=== PATIENT | female | born 1990 | race Caucasian/White ===

== ENCOUNTER → 2023-02-01 17:32 | Outpatient (CLI) | payer MEDICAID, SELFPAY ==
[2023-02-01 16:55] LABS: Basophils % 0.5 % (0.1-2.0); Eosinophils # 0.3 K/mm3 (0.0-0.4); Eosinophils % 4.7 % (0.1-12.0); Hematocrit 41.9 % (37.0-47.0); Hemoglobin 13.5 g/dL (12.2-16.2); Lymphocytes # 2.2 K/mm3 (0.7-4.5); Lymphocytes % 37.8 % (10-50); Mean Corpuscular HGB Conc 32.3 g/dL (31.8-35.4); Mean Corpuscular Hemoglobin 28.3 pg (27.0-31.2); Mean Corpuscular Volume 87.5 fl (81-99); Mean Platelet Volume 7.1 fl (7.4-10.4); Monocytes # 0.4 K/mm3 (0.1-1.0); Monocytes % 6.9 % (1.7-9.3); Neutrophils # 2.9 K/mm3 (1.8-7.8); Neutrophils % 50.1 % (37.0-80.0); Platelet Count 259 K/mm3 (142-424); Red Blood Count 4.79 M/mm3 (4.20-5.40); Red Cell Distribution Width 13.2 % (11.5-17.5); White Blood Count 5.9 K/mm3 (4.8-10.8)
[2023-02-01 17:11] LABS: Chloride 98 mmol/L (98-107); Potassium 4.2 mmoL/L (3.5-5.1); Sodium 137 mmol/L (136-145)
[2023-02-01 17:14] LABS: Alanine Aminotransferase 39 U/L (12-78); Albumin Level 4.3 g/dl (3.5-5.0); Albumin/Globulin Ratio 1.4 (1.1-1.8); Alkaline Phosphatase 69 U/L (38-126); Anion Gap 15.2 mEq/L (5-15); Aspartate Amino Transferase 37 U/L (14-36); Bilirubin,Total 0.6 mg/dl (0.2-1.3); Blood Urea Nitrogen 8 mg/dl (7-17); Calcium 9.1 mg/dl (8.4-10.2); Carbon Dioxide 28 mmol/L (22.0-30.0); Estimated Glomerular Filt Rate 97 ml/min (>60); GFR (African American) 117 ML/MIN (>60); Globulin 3.1 g/dL (1.3-3.2); Glucose 113 mg/dl (74-100); Total Protein,Serum 7.4 g/dl (6.3-8.2)
[2023-02-01 17:41] LABS: Thyroid Stimulating Hormone 2.86 uIU/mL (0.465-4.68)
[2023-02-03 12:37] LABS: FSH 6.4 mIU/mL (.); LH 19.7 mIU/mL (.)
[2023-02-12 17:55] LABS: 1,25 Dihydroxy Vitamin D 54 pg/mL (.); 1,25-Dihydroxy, Vitamin D-2 <10 pg/mL (.); 1,25-Dihydroxy, Vitamin D-3 50 pg/mL (.)
== END ==
PROVIDERS: PCP Nurse Practitioner Family; Visit Provider Nurse Practitioner Family
DX: R53.83 Other fatigue (principal); E66.9 Obesity, unspecified; Z68.41 Body mass index [BMI] 40.0-44.9, adult; Z79.899 Other long term (current) drug therapy
CPT/HCPCS: 80053; 82652; 82672; 83001; 83002; 83036; 84443; 85025

== ENCOUNTER → 2023-09-18 08:03 | Outpatient (CLI) | payer MEDICAID, SELFPAY | PROVIDERS: PCP Nurse Practitioner Family; Visit Provider Nurse Practitioner Family | DX: J02.9 Acute pharyngitis, unspecified (principal); Z87.891 Personal history of nicotine dependence | CPT/HCPCS: 87070 ==

== ENCOUNTER 2023-11-21 12:52 | Emergency (ER) | payer MEDICAID, SELFPAY ==
[2023-11-21 13:00] VITALS: BP 148/80; PULSE 70; RESP 16; TEMP 36.8; O2SAT 99; BMI 44.6
[2023-11-21 13:42] LABS: Basophils % 0.5 % (0.1-2.0); Eosinophils # 0.1 K/mm3 (0.0-0.4); Eosinophils % 1.6 % (0.1-12.0); Hematocrit 43.7 % (37.0-47.0); Hemoglobin 14.8 g/dL (12.2-16.2); Lymphocytes # 2.5 K/mm3 (0.7-4.5); Lymphocytes % 30.5 % (10-50); Mean Corpuscular HGB Conc 33.8 g/dL (31.8-35.4); Mean Corpuscular Hemoglobin 30.5 pg (27.0-31.2); Monocytes # 0.5 K/mm3 (0.1-1.0); Monocytes % 5.8 % (1.7-9.3); Neutrophils % 61.7 % (37.0-80.0); Platelet Count 275 K/mm3 (142-424); Red Blood Count 4.86 M/mm3 (4.20-5.40); Red Cell Distribution Width 13.5 % (11.5-17.5); White Blood Count 8.1 K/mm3 (4.8-10.8)
[2023-11-21 13:43] LABS: Chloride 97 mmol/L (98-107); Sodium 134 mmol/L (136-145)
[2023-11-21 13:44] LABS: Potassium 3.7 mmoL/L (3.5-5.1)
[2023-11-21 13:46] LABS: Alanine Aminotransferase 63 U/L (12-78); Albumin Level 4.4 g/dl (3.5-5.0); Albumin/Globulin Ratio 1.3 (1.1-1.8); Alkaline Phosphatase 70 U/L (38-126); Anion Gap 4.7 mEq/L (5-15); Aspartate Amino Transferase 61 U/L (14-36); Bilirubin,Total 0.9 mg/dl (0.2-1.3); Blood Urea Nitrogen 10 mg/dl (7-17); Carbon Dioxide 36 mmol/L (22.0-30.0); Creatinine Clearance Estimated 95 mL/min (50-200); Estimated Glomerular Filt Rate 83 ml/min (>60); GFR (African American) 101 ML/MIN (>60); Globulin 3.5 g/dL (1.3-3.2); Total Protein,Serum 7.9 g/dl (6.3-8.2)
[2023-11-21 13:47] LABS: Calcium 9.7 mg/dl (8.4-10.2); Glucose 296 mg/dl (74-100)
[2023-11-21 13:52] LABS: D-Dimer 0.41 ug/mL (0.0-0.5)
[2023-11-21 14:01] VITALS: BP 126/77; PULSE 70; RESP 20; O2SAT 100
[2023-11-21] MEDS: 0.9 % SODIUM CHLORIDE 1000ML 500 ML IV (14:08)
[2023-11-21] MEDS: diphenhydrAMINE 50MG/ML VIAL 25 MG IV (14:10)
[2023-11-21] MEDS: ACETAMINOPHEN 500MG TAB 1000 MG PO (14:10)
[2023-11-21] MEDS: PROCHLORPERAZINE 10MG/2ML VIAL 10 MG IV (14:10)
[2023-11-21] MEDS: KETOROLAC 30MG/ML VIAL 15 MG IV (14:11)
[2023-11-21] MEDS: DEXAMETHASONE 4MG/ML 1ML VIAL 10 MG IV (14:11)
--- NOTE | 2023-11-21 14:17 | PC.NURSE ---
Medications given, pillow and blanket given.
--- NOTE | 2023-11-21 14:19 | HMH.EDGENADL ---
Discharge Plan Disposition Patient Disposition: Left Against Medical Advice Chief Complaint: Headache Prescriptions Prescriptions: No Action fluticasone propionate [Flonase Allergy Relief] 50 mcg/actuation spray,suspension 1 spray intranasal DAILY Qty: 16 2RF Rx Instructions: administer into each nostril cetirizine [All Day Allergy (cetirizine)] 10 mg tablet 10 mg PO DAILY PRN (Reason: allergic symptoms) Qty: 90 2RF famotidine 20 mg tablet 20 mg PO DAILY hydrochlorothiazide 50 mg tablet 50 mg PO DAILY Qty: 30 2RF ipratropium-albuterol 0.5 mg-3 mg(2.5 mg base)/3 mL solution for nebulization 3 ml inhalation QID PRN (Reason: shortness of breath or wheezing) Qty: 90 0RF diclofenac sodium 50 mg tablet,delayed release (DR/EC) 50 mg PO BID Qty: 60 1RF metformin 500 mg tablet extended release 24 hr 500 mg PO DAILY Qty: 30 3RF Referrals Follow up/Referrals: Marshall Menodza MD [Primary Care Provider] - See instructions Clinical Impressions Clinical Impression: Headache Discharge ED Provider: Holden Kaplan General Adult HPI <Holden Kaplan MD - Last Filed: 11/21/23 15:30> General Chief complaint: Headache Stated complaint: high bp headaches Time Seen by Provider: 11/21/23 13:01 Mode of Arrival: Ambulatory Source of Information: Patient Limitations: No Limitations Description of Symptoms (Recalled from ER Triage Doc. by RN): Patient reports having problems with her blood pressure yesterday. States she began to have a headache so she went to her PCP. States her PCP prescribed her Lisinopril and since starting that medication her blood pressure has improved, however the headache has not went away. Denies any visual disturbances, light sensitivity, or history of migraines. Does states that she was nauseous this morning. History of Present Illness HPI narrative: 32-year-old female presenting with headaches and high blood pressure. Patient states that she has been following with her primary care doctor regarding her hypertension and is now on blood pressure medication. States that she feels that her blood pressure is controlled, but she is now having headaches. Intermittently gets headaches, but they are never this bad. She states that this headache started yesterday, 11/20. It woke her up from sleep. Got worse throughout the day, then a little bit better at night. She states that last night, 11/20 into 11/21 she was having intermittent stabbing headaches throughout the night. They are right-sided, behind her right eye and radiates to her occipital scalp. She states that she has had Related Data Home Medications Medication Instructions Recorded Confirmed famotidine 20 mg tablet 20 mg PO DAILY 04/11/23 11/20/23 Previous Rx's Medication Instructions Recorded cetirizine 10 mg tablet (All Day 10 mg PO DAILY PRN allergic 02/01/23 Allergy (cetirizine)) symptoms #90 tabs fluticasone propionate 50 1 spray intranasal DAILY #16 grams 02/01/23 mcg/actuation nasal spray,suspension (Flonase Allergy Relief) metformin 500 mg tablet,extended 500 mg PO DAILY #30 tabs 02/02/23 release 24 hr diclofenac sodium 50 mg 50 mg PO BID #60 tabs 05/23/23 tablet,delayed release hydrochlorothiazide 50 mg tablet 50 mg PO DAILY #30 tabs 09/18/23 ipratropium 0.5 mg-albuterol 3 mg 3 ml inhalation QID PRN shortness 09/18/23 (2.5 mg base)/3 mL nebulization of breath or wheezing #90 mL soln Allergies Allergy/AdvReac Type Severity Reaction Status Date / Time sulfamethoxazole Allergy Hives Verified 11/20/23 16:12 [From Bactrim] topiramate [From Topamax] Allergy Verified 11/21/23 13:05 trimethoprim [From Bactrim] Allergy Hives Verified 11/20/23 16:12 [facility] <Holden Kaplan MD - Last Filed: 11/21/23 15:30> [facility] Disclaimer: The information contained in this section may have been updated after the patient was seen, as this information can be updated by other users. Medical History (Updated 11/21/23 @ 15:54 by Mango Martinez MD) Colitis Hypertension Surgical History H/O adenoidectomy History of cholecystectomy History of tonsillectomy Family History Grandmother Cancer Grandfather Cancer Mother Cancer Hypertension Heart attack Father Hypertension Social History (Reviewed 09/18/23 @ 12:16 by Lindsay Mccrary Smoking Status: Current every day smoker how long ago did patient quit smoking: < 1 year alcohol intake: never substance use type: denies use current occupational status: unemployed Travel in the last 8 weeks: None household members: spouse, family and children housing: house marital status: <Holden Kaplan MD - Last Filed: 11/21/23 15:30> ROS Obtained: Yes All systems reviewed & no additional complaints except as documented Physical Exam <Holden Kaplan MD - Last Filed: 11/21/23 15:30> General General appearance: alert and in no apparent distress Head Head exam: atraumatic and normocephalic Eye Eye exam: Present normal appearance, PERRL and EOMI ENT ENT exam: Present mucous membranes moist Neck Neck exam: Present normal inspection, full ROM and trachea midline Respiratory Respiratory exam: Absent respiratory distress, wheezes, stridor, accessory muscle use or prolonged expiratory phase Cardiovascular Cardiovascular exam: Present normal rhythm Abdominal Exam Abdominal exam: Present soft; Absent distention, tenderness, guarding, rebound or rigidity Extremities Exam Extremities exam: Absent edema Neurological Exam Neurological exam: Present alert, oriented X3, CN II-XII intact and normal gait; Absent motor sensory deficit Skin Skin exam: Present warm and dry; Absent diaphoresis or erythema Medical Decision Making <Holden Kaplan MD - Last Filed: 11/21/23 15:30> Medical Records Medical records reviewed: Yes I reviewed the patient's medical records. Abhijit Inquiry Pt receiving controlled substance: No Abhijit was queried for this patient: No Vital Signs: 11/21/23 13:00 11/21/23 14:01 11/21/23 14:31 Temperature 98.3 F Temperature Source Oral Pulse Rate 70 52 L Pulse Rate [Radial] 70 Respiratory Rate 16 20 18 Blood Pressure 126/77 131/69 Blood Pressure [Right Arm] 148/80 H Blood Pressure Mean 87 85 Blood Pressure Mean [Right Arm] 102 Blood Pressure Source [Right Arm] Automatic Cuff Blood Pressure Position [Right Arm] Sitting 02 Sat by Pulse Oximetry 99 100 96 Oxygen Delivery Method Room Air 11/21/23 15:01 11/21/23 15:31 Temperature Temperature Source Pulse Rate 64 60 Pulse Rate [Radial] Respiratory Rate 20 20 Blood Pressure 113/73 107/63 L Blood Pressure [Right Arm] Blood Pressure Mean 86 76 Blood Pressure Mean [Right Arm] Blood Pressure Source [Right Arm] Blood Pressure Position [Right Arm] 02 Sat by Pulse Oximetry 99 100 Oxygen Delivery Method Lab Data Lab Results 11/21/23 13:06: WBC 8.1, RBC 4.86, Hgb 14.8, Hct 43.7, MCV 90.0, MCH 30.5, MCHC 33.8, RDW 13.5, Plt Count 275, MPV 8.0, Neut % (Auto) 61.7, Lymph % (Auto) 30.5, [place] % (Auto) 5.8, Eos % (Auto) 1.6, Baso % (Auto) 0.5, Neut # (Auto) 5.0, Lymph # (Auto) 2.5, [place] # (Auto) 0.5, Eos # (Auto) 0.1, Baso # (Auto) 0.0, ESR 15, PT 10.1, INR 0.93, APTT 26.1, D-Dimer 0.41, Sodium 134 L, Potassium 3.7, Chloride 97 L, Carbon Dioxide 36 H, Anion Gap 4.7 L, BUN 10, Creatinine 0.80, Estimated Creat Clear 95, Estimated GFR 83, Est GFR ( Amer) 101, Glucose 296 H, Calcium 9.7, Total Bilirubin 0.9, AST 61 H, ALT 63, Alkaline Phosphatase 70, C-Reactive Protein 4.9 H, Total Protein 7.9, Albumin 4.4, Globulin 3.5 H, Albumin/Globulin Ratio 1.3 11/21/23 14:00: HCG, Quant < 2 11/21/23 13:06 11/21/23 13:06 Orders (Tests/Meds): ED MEDICATIONS Discontinued Medications Generic Name Dose Route Start Last Admin Trade Name Freq PRN Reason Stop Dose Admin Acetaminophen 1,000 mg 11/21/23 13:35 11/21/23 14:10 Acetaminophen 500mg Tab PO 11/21/23 13:36 1,000 mg ONCE ONE Administration Dexamethasone Sodium Phosphate 10 mg 11/21/23 13:34 11/21/23 14:11 Dexamethasone 4mg/Ml 1ml Vial IV 11/21/23 13:35 10 mg ONCE ONE Administration Diphenhydramine HCl 25 mg 11/21/23 13:35 11/21/23 14:10 Diphenhydramine 50mg/Ml Vial IV 11/21/23 13:36 25 mg ONCE ONE Administration Sodium Chloride 500 mls @ 500 mls/hr 11/21/23 13:35 11/21/23 14:08 Sod Chlor 0.9% 1000ml Bag IV 11/21/23 14:34 500 mls/hr .Q1H ONE Administration Ketorolac Tromethamine 15 mg 11/21/23 13:34 11/21/23 14:11 Ketorolac 30mg/Ml Vial IV 11/21/23 13:35 15 mg ONCE ONE Administration Prochlorperazine Edisylate 10 mg 11/21/23 13:34 11/21/23 14:10 Prochlorperazine 10mg/2ml Vial IV 11/21/23 13:35 10 mg ONCE ONE Administration ORDERS Category Date Time Status CT Venogram head Stat Cat Scan 11/21/23 14:[address] angio head Stat Cat Scan 11/21/23 15:[address] angio neck Stat Cat Scan 11/21/23 15:[address] head/brain wo con Stat Cat Scan 11/21/23 15:24 Ordered CBC w/Auto Diff [Complete Blood Count Auto Diff] Stat Lab 11/21/23 13:06 Completed CMP [Comprehensive Metabolic Panel] Stat Lab 11/21/23 13:06 Completed CRP [C-Reactive Protein] Stat Lab 11/21/23 13:06 Completed D-Dimer Stat Lab 11/21/23 13:06 Completed ESR [Erythrocyte Sedimentation Rate] Stat Lab 11/21/23 13:06 Completed HCG,Quantitative Stat Lab 11/21/23 14:00 Completed PT INR [Prothrombin Time INR] Stat Lab 11/21/23 13:06 Completed PTT [Activated Partial Thrombo Time] Stat Lab 11/21/23 13:06 Completed Medical Decision Narrative: 32-year-old female presenting with headaches and high blood pressure. Patient states that she has been following with her primary care doctor regarding her hypertension and is now on blood pressure medication. States that she feels that her blood pressure is controlled, but she is now having headaches. Intermittently gets headaches, but they are never this bad. She states that this headache started yesterday, 11/20. It woke her up from sleep. Got worse throughout the day, then a little bit better at night. She states that last night, 11/20 into 11/21 she was having intermittent stabbing headaches throughout the night. They are right-sided, behind her right eye and radiates to her occipital scalp. She states that she has had. History was obtained via conversation with patient. On arrival, patient hemodynamically stable, alert, oriented x4, appropriate, GCS 15, moving all extremities spontaneously, pupils equal and reactive to light. Full physical exam performed and significant for well-appearing woman in no acute distress. Neurologically intact. Not photophobic or phonophobic. No range of motion difficulties in the neck, meningismus, confusion. She is hemodynamically stable, afebrile, normotensive. Differential includes migraine disorder, tension headache, dural venous thrombosis, IIH, among others. Patient was given Compazine, Benadryl, Decadron, Toradol, acetaminophen, fluid bolus for symptomatic management and correction of underlying abnormalities. Workup independently interpreted and significant for nonactionable CBC or chemistry. D-dimer normal. Coags normal. hCG negative. Prior to CT evaluation, care handed off to oncoming physician. <Mango Martinez MD - Last Filed: 11/21/23 15:54> Vital Signs: 11/21/23 13:00 11/21/23 14:01 11/21/23 14:31 Temperature 98.3 F Temperature Source Oral Pulse Rate 70 52 L Pulse Rate [Radial] 70 Respiratory Rate 16 20 18 Blood Pressure 126/77 131/69 Blood Pressure [Right Arm] 148/80 H Blood Pressure Mean 87 85 Blood Pressure Mean [Right Arm] 102 Blood Pressure Source [Right Arm] Automatic Cuff Blood Pressure Position [Right Arm] Sitting 02 Sat by Pulse Oximetry 99 100 96 Oxygen Delivery Method Room Air 11/21/23 15:01 11/21/23 15:31 Temperature Temperature Source Pulse Rate 64 60 Pulse Rate [Radial] Respiratory Rate 20 20 Blood Pressure 113/73 107/63 L Blood Pressure [Right Arm] Blood Pressure Mean 86 76 Blood Pressure Mean [Right Arm] Blood Pressure Source [Right Arm] Blood Pressure Position [Right Arm] 02 Sat by Pulse Oximetry 99 100 Oxygen Delivery Method Lab Data Lab results reviewed: Yes I reviewed the patient's lab results. Lab Results 11/21/23 13:06: WBC 8.1, RBC 4.86, Hgb 14.8, Hct 43.7, MCV 90.0, MCH 30.5, MCHC 33.8, RDW 13.5, Plt Count 275, MPV 8.0, Neut % (Auto) 61.7, Lymph % (Auto) 30.5, [place] % (Auto) 5.8, Eos % (Auto) 1.6, Baso % (Auto) 0.5, Neut # (Auto) 5.0, Lymph # (Auto) 2.5, [place] # (Auto) 0.5, Eos # (Auto) 0.1, Baso # (Auto) 0.0, ESR 15, PT 10.1, INR 0.93, APTT 26.1, D-Dimer 0.41, Sodium 134 L, Potassium 3.7, Chloride 97 L, Carbon Dioxide 36 H, Anion Gap 4.7 L, BUN 10, Creatinine 0.80, Estimated Creat Clear 95, Estimated GFR 83, Est GFR ( Amer) 101, Glucose 296 H, Calcium 9.7, Total Bilirubin 0.9, AST 61 H, ALT 63, Alkaline Phosphatase 70, C-Reactive Protein 4.9 H, Total Protein 7.9, Albumin 4.4, Globulin 3.5 H, Albumin/Globulin Ratio 1.3 11/21/23 14:00: HCG, Quant < 2 Orders (Tests/Meds): ED MEDICATIONS Discontinued Medications Generic Name Dose Route Start Last Admin Trade Name Kristopherq PRN Reason Stop Dose Admin Acetaminophen 1,000 mg 11/21/23 13:35 11/21/23 14:10 Acetaminophen 500mg Tab PO 11/21/23 13:36 1,000 mg ONCE ONE Administration Dexamethasone Sodium Phosphate 10 mg 11/21/23 13:34 11/21/23 14:11 Dexamethasone 4mg/Ml 1ml Vial IV 11/21/23 13:35 10 mg ONCE ONE Administration Diphenhydramine HCl 25 mg 11/21/23 13:35 11/21/23 14:10 Diphenhydramine 50mg/Ml Vial IV 11/21/23 13:36 25 mg ONCE ONE Administration Sodium Chloride 500 mls @ 500 mls/hr 11/21/23 13:35 11/21/23 14:08 Sod Chlor 0.9% 1000ml Bag IV 11/21/23 14:34 500 mls/hr .Q1H ONE Administration Ketorolac Tromethamine 15 mg 11/21/23 13:34 11/21/23 14:11 Ketorolac 30mg/Ml Vial IV 11/21/23 13:35 15 mg ONCE ONE Administration Prochlorperazine Edisylate 10 mg 11/21/23 13:34 11/21/23 14:10 Prochlorperazine 10mg/2ml Vial IV 11/21/23 13:35 10 mg ONCE ONE Administration ORDERS Category Date Time Status CT Venogram head Stat Cat Scan 11/21/23 14:[address] angio head Stat Cat Scan 11/21/23 15:[address] angio neck Stat Cat Scan 11/21/23 15:[address] head/brain wo con Stat Cat Scan 11/21/23 15:24 Ordered CBC w/Auto Diff [Complete Blood Count Auto Diff] Stat Lab 11/21/23 13:06 Completed CMP [Comprehensive Metabolic Panel] Stat Lab 11/21/23 13:06 Completed CRP [C-Reactive Protein] Stat Lab 11/21/23 13:06 Completed D-Dimer Stat Lab 11/21/23 13:06 Completed ESR [Erythrocyte Sedimentation Rate] Stat Lab 11/21/23 13:06 Completed HCG,Quantitative Stat Lab 11/21/23 14:00 Completed PT INR [Prothrombin Time INR] Stat Lab 11/21/23 13:06 Completed PTT [Activated Partial Thrombo Time] Stat Lab 11/21/23 13:06 Completed Medical Decision Narrative: 32-year-old female presenting with headaches and high blood pressure. Patient states that she has been following with her primary care doctor regarding her hypertension and is now on blood pressure medication. States that she feels that her blood pressure is controlled, but she is now having headaches. Intermittently gets headaches, but they are never this bad. She states that this headache started yesterday, 11/20. It woke her up from sleep. Got worse throughout the day, then a little bit better at night. She states that last night, 11/20 into 11/21 she was having intermittent stabbing headaches throughout the night. They are right-sided, behind her right eye and radiates to her occipital scalp. She states that she has had. History was obtained via conversation with patient. On arrival, patient hemodynamically stable, alert, oriented x4, appropriate, GCS 15, moving all extremities spontaneously, pupils equal and reactive to light. Full physical exam performed and significant for well-appearing woman in no acute distress. Neurologically intact. Not photophobic or phonophobic. No range of motion difficulties in the neck, meningismus, confusion. She is hemodynamically stable, afebrile, normotensive. Differential includes migraine disorder, tension headache, dural venous thrombosis, IIH, among others. Patient was given Compazine, Benadryl, Decadron, Toradol, acetaminophen, fluid bolus for symptomatic management and correction of underlying abnormalities. Workup independently interpreted and significant for nonactionable CBC or chemistry. D-dimer normal. Coags normal. hCG negative. Prior to CT evaluation, care handed off to oncoming physician. Reassessment 3:[address] Martinez I took over Dr. Kaplan at 3 PM. Patient stating she is feeling much better and would like to leave prior to her scan stating she needs to get home to her kids. I went evaluated the patient she looks great has a normal neurologic exam it is exceedingly unlikely she has an emergent medical condition however there was concern by the preceding doctor for venous sinus thrombosis and/or other pathology given that her symptoms were out of proportion to what she had in the past. I cannot rule these things out definitively I discussed this with the patient she understands the risks of leaving including disability and and was not willing to stay for her further diagnostic tests therefore she left AMA and will return with any worsening symptoms. Critical Care <Holden Kaplan MD - Last Filed: 11/21/23 15:30> Critical Care Time Critical Care Time: No
[2023-11-21 14:31] VITALS: BP 131/69; PULSE 52; RESP 18; O2SAT 96
--- NOTE | 2023-11-21 14:35 | PC.NURSE ---
Rounded on patient. Resting in bed with eyes closed. No needs at this time.
[2023-11-21 14:48] LABS: Activated Partial Thrombo Time 26.1 seconds (22.8-30.6); INR 0.93 (0.9-1.1); Prothrombin Time 10.1 seconds (10.1-12.5)
[2023-11-21 14:54] LABS: C-Reactive Protein 4.9 mg/L (0-4)
[2023-11-21 15:01] VITALS: BP 113/73; PULSE 64; RESP 20; O2SAT 99
[2023-11-21 15:29] LABS: HCG,Quantitative < 2 mIU/ml (0-5.42)
[2023-11-21 15:29] LABS: Erythrocyte Sedimentation Rate 15 mm/hr (0-20)
[2023-11-21 15:31] VITALS: BP 107/63; PULSE 60; RESP 20; O2SAT 100
--- NOTE | 2023-11-21 15:48 | PC.NURSE ---
PT AND FAMILY UPDATED ON POC. NO FURTHER NEEDS AT THIS TIME
--- NOTE | 2023-11-21 15:59 | PC.NURSE ---
Patient refused ordered CT scans at this time. Patient states she feels fine and needs to get home to her kids. Patient was educated and Dr. Martinez also spoke with the patient. Patient verbalized understanding and signed out AMA.
[2023-11-21 16:01] VITALS: BP 107/63; PULSE 60; RESP 18; TEMP 36.8; O2SAT 99
== END 2023-11-21 16:02 | disposition left against medical advice (07) ==
PROVIDERS: Emergency Provider Emergency Medicine; PCP Family Medicine
DX: R51.9 Headache, unspecified (principal); I10 Essential (primary) hypertension; F17.200 Nicotine dependence, unspecified, uncomplicated
CPT/HCPCS: 80053; 84702; 85025; 85378; 85610; 85651; 85730; 86140; 96361; 96374; 96375; 99285

== ENCOUNTER 2024-10-19 15:51 | Emergency (ER) | payer MEDICAID, SELFPAY ==
[2024-10-19] VITALS (8 sets, daily range): BP systolic 124–166; BP diastolic 85–102; PULSE 62–84; RESP 18; TEMP 36.4–36.6; O2SAT 97–100; BMI 43.5
[2024-10-19 16:04] LABS: Microscopic, Urine URINE MICROSCOPIC (MICROSCOPIC)
[2024-10-19 16:13] LABS: Appearance,Urine CLEAR (Clear); Bilirubin,Urine Negative (Negative); Blood, Urine TRACE-I (Negative); Color,Urine YELLOW (Yellow); Glucose,Urine (UA) 3+ (Negative); Ketones,Urine Negative (Negative); Leukocyte Esterase,Urine Negative (Negative); Nitrate,Urine Negative (Negative); PH,Urine 5.5 (5.0-8.5); Protein,Urine Negative (Negative); Specific Gravity, Urine >= 1.030 (1.005-1.030); Urobilinogen,Urine 0.2 EU/dl (0.2)
--- NOTE | 2024-10-19 16:15 | ED_ITS ---
Discharge Plan Disposition Patient Disposition: Home, Self-Care Condition: Good Prescriptions Prescriptions: New amoxicillin-pot clavulanate 875-125 mg tablet 1 tab PO Q8H 5 Days Qty: 15 0RF oxycodone 5 mg tablet 5 mg PO DAILY PRN (Reason: pain) Qty: 3 0RF No Action fluticasone propionate [Flonase Allergy Relief] 50 mcg/actuation spray,suspension 1 spray intranasal DAILY Qty: 16 2RF Rx Instructions: administer into each nostril cetirizine [All Day Allergy (cetirizine)] 10 mg tablet 10 mg PO DAILY PRN (Reason: allergic symptoms) Qty: 90 2RF famotidine 20 mg tablet 20 mg PO DAILY ipratropium-albuterol 0.5 mg-3 mg(2.5 mg base)/3 mL solution for nebulization 3 ml inhalation QID PRN (Reason: shortness of breath or wheezing) Qty: 90 0RF diclofenac sodium 50 mg tablet,delayed release (DR/EC) 50 mg PO BID Qty: 60 1RF metformin 500 mg tablet extended release 24 hr 500 mg PO DAILY Qty: 30 3RF lisinopril 10 mg tablet 10 mg PO DAILY Qty: 30 3RF hydrochlorothiazide 50 mg tablet 50 mg PO DAILY 30 Days Qty: 30 2RF amoxicillin 500 mg tablet 500 mg PO TID Qty: 30 0RF ondansetron 4 mg tablet,disintegrating 4 mg PO BID PRN (Reason: nausea and vomiting) 5 Days Qty: 20 2RF fluconazole 150 mg tablet 150 mg PO Q OTHER DAY Qty: 14 0RF Referrals Follow up/Referrals: Marshall Mendoza MD [Primary Care Provider] - See instructions Activity Restrictions/Add. Instructions Additional Instructions/Restrictions: Take the antibiotics as prescribed and until completed. You can alternate Tylenol and ibuprofen every 3 hours or take both medications together every 6 hours for pain. If your symptoms worsen after 3 days of antibiotics, please follow-up with your primary care provider or return to the ER for reevaluation. If you develop fevers, uncontrolled vomiting or uncontrolled pain, please return for reevaluation. Your A1c was over 11% and this is associated with a diabetic diagnosis. Please follow-up with your primary care provider for continued management. Clinical Impressions Clinical Impression: Diverticulitis Diabetes Qualifiers: Diabetes mellitus type: type 2 Instructions Patient Instructions: DI for Diverticulitis Print Language Print Language: Chilean Discharge ED Provider: Tatyana Juarez General Adult HPI General Chief complaint: PAIN Stated complaint: lower back pain,sent byPati Garcia Time Seen by Provider: 10/19/24 15:57 Mode of Arrival: Ambulatory Source of Information: Patient Limitations: No Limitations Description of Symptoms (Recalled from ER Triage Doc. by RN): rocio back side pain for three days. history of diverticulitis. History of Present Illness HPI narrative: Patient is a 33-year-old female presenting with lower back pain. Patient states that her pain started approximately 3 days ago and was initially midline and began to radiate to the left and right and is now across her whole lower back. Patient states this is her typical symptom when she has an episode of diverticulitis. Patient states she has never had surgery for diverticulitis. Her abdominal surgical history includes cholecystectomy. Patient states her bowel movements have been normal, without blood, constipation, diarrhea. Patient denies dysuria or hematuria. Patient denies trauma to the back, saddle anesthesia, bowel or bladder incontinence. Patient denies nausea, vomiting, fever, chills, chest pain. Related Data Home Medications ?Medication ?Instructions ?Recorded ?Confirmed famotidine 20 mg tablet 20 mg PO DAILY 04/11/23 11/20/23 Previous Rx's ?Medication ?Instructions ?Recorded cetirizine 10 mg tablet (All Day 10 mg PO DAILY PRN allergic 02/01/23 Allergy (cetirizine)) symptoms #90 tabs fluticasone propionate 50 1 spray intranasal DAILY #16 grams 02/01/23 mcg/actuation nasal spray,suspension (Flonase Allergy Relief) metformin 500 mg tablet,extended 500 mg PO DAILY #30 tabs 02/02/23 release 24 hr diclofenac sodium 50 mg 50 mg PO BID #60 tabs 05/23/23 tablet,delayed release ipratropium 0.5 mg-albuterol 3 mg 3 ml inhalation QID PRN shortness 09/18/23 (2.5 mg base)/3 mL nebulization of breath or wheezing #90 mL soln lisinopril 10 mg tablet 10 mg PO DAILY #30 tabs 11/22/23 hydrochlorothiazide 50 mg tablet 50 mg PO DAILY 30 days #30 tabs 12/18/23 amoxicillin 500 mg tablet 500 mg PO TID #30 tabs 07/22/24 fluconazole 150 mg tablet 150 mg PO Q OTHER DAY #14 tabs 07/22/24 ondansetron 4 mg disintegrating 4 mg PO BID PRN nausea and 07/22/24 tablet vomiting 5 days #20 tabs amoxicillin 875 mg-potassium 1 tab PO Q8H 5 days #15 tabs 10/19/24 clavulanate 125 mg tablet oxycodone 5 mg tablet 5 mg PO DAILY PRN pain #3 tabs 10/19/24 Allergies Allergy/AdvReac Type Severity Reaction Status Date / Time sulfamethoxazole (From Allergy Hives Verified 11/20/23 16:12 Bactrim) topiramate (From Topamax) Allergy Verified 11/21/23 13:05 trimethoprim (From Bactrim) Allergy Hives Verified 11/20/23 16:12 PFSH PFS Disclaimer: The information contained in this section may have been updated after the patient was seen, as this information can be updated by other users. Medical History (Updated 10/19/24 @ 18:33 by Tatyana Juarez MD) Colitis Hypertension Surgical History H/O adenoidectomy History of tonsillectomy History of cholecystectomy Family History Grandmother Cancer Grandfather Cancer Mother Cancer Hypertension Heart attack Father Hypertension Social History Smoking Status: Current every day smoker how long ago did patient quit smoking: < 1 year alcohol intake: never substance use type: denies use current occupational status: unemployed Travel in the last 8 weeks: None household members: spouse, family and children housing: house marital status: Have you lived/traveled outside [place] in past 30 days?: No Contact w/someone who lives/traveled outside US past 30 days?: No Exposure to someone with infectious disease in past 14 days?: No Do you have a fever (greater than 100.4 F or 38 C)?: No Have you tested positive for COVID-19: No Exposed to someone with COVID-19 in past 14 days?: No Do you have a sore throat?: No Do you have a cough?: No Do you have any weakness?: No Do you have any diarrhea?: No Are you experiencing any unusual bleeding?: No Do you have any muscle aches/pain?: Yes Do you have any abdominal pain?: No Are you experiencing loss of taste or smell?: No Other Medical History Have you received the Pneumonia Vaccine: No ROS Obtained: Yes All systems reviewed & no additional complaints except as documented Physical Exam General General appearance: alert and in no apparent distress (appears to be in pain) Respiratory Respiratory exam: Present normal lung sounds bilaterally; Absent respiratory distress Cardiovascular Cardiovascular exam: Present regular rate and normal rhythm; Absent JVD Abdominal Exam Abdominal exam: Present soft; Absent distention, tenderness or guarding Back Exam Back exam: Present normal inspection; Absent tenderness (low back pain not reproducible on exam) Neurological Exam Neurological exam: Present alert and oriented X3 Skin Skin exam: Present warm, dry, intact and normal color Medical Decision Making Medical Records Medical records reviewed: Yes I reviewed the patient's medical records. Screening: Per USPSTF and CDC recommendations, given the prevalence of disease in our region, it is our hospital?s policy to screen for HIV and viral Hepatitis for all patients aged 18 and over and those with ongoing risk factors. Abhijit Inquiry Pt receiving controlled substance: Yes Abhijit was queried for this patient: Yes Risks and benefits of using a controlled substance: were discussed with pt by me Vital Signs: 10/19/24 15:53 10/19/24 16:02 10/19/24 16:36 Temperature 97.5 F L Temperature Source Oral Pulse Rate 68 84 Pulse Rate [Right] 62 Respiratory Rate 18 Blood Pressure 166/100 H 141/94 H Blood Pressure [Right Arm] 166/100 H Blood Pressure Mean Blood Pressure Mean [Right Arm] 122 02 Sat by Pulse Oximetry 99 98 97 Oxygen Delivery Method Room Air Room Air Room Air 10/19/24 17:01 10/19/24 17:30 10/19/24 18:15 Temperature Temperature Source Pulse Rate 65 69 66 Pulse Rate [Right] Respiratory Rate 18 Blood Pressure 124/86 145/92 H 136/85 Blood Pressure [Right Arm] Blood Pressure Mean 106 Blood Pressure Mean [Right Arm] 02 Sat by Pulse Oximetry 97 99 100 Oxygen Delivery Method Room Air Room Air 10/19/24 18:22 10/19/24 18:30 10/19/24 18:30 Temperature 98 F Temperature Source Pulse Rate 64 70 65 Pulse Rate [Right] Respiratory Rate 18 Blood Pressure 136/85 136/85 131/102 H Blood Pressure [Right Arm] Blood Pressure Mean Blood Pressure Mean [Right Arm] 02 Sat by Pulse Oximetry 100 99 Oxygen Delivery Method Room Air Room Air Room Air Lab Data Lab results reviewed: Yes I reviewed the patient's lab results. Lab Results 10/19/24 16:00: Urine Color Yellow, Urine Appearance Clear, Urine pH 5.5, Ur Specific Elsa >= 1.030, Urine Protein Negative, Urine Glucose (UA) 3+, Urine Ketones Negative, Urine Blood Trace-i, Urine Nitrate Negative, Urine Bilirubin Negative, Urine Urobilinogen 0.2, Ur Leukocyte Esterase Negative, Urine RBC Occasional, Urine WBC 3-5, Ur Squamous Epith Cells Occasional, Urine Bacteria Trace 10/19/24 16:20: WBC 5.9, RBC 4.83, Hgb 14.4, Hct 41.7, MCV 86.3, MCH 29.8, MCHC 34.5, RDW 11.9, Plt Count 274, MPV 10.4, Neut % (Auto) 49.6, Lymph % (Auto) 37.2, [place] % (Auto) 8.5, Eos % (Auto) 3.7, Baso % (Auto) 0.7, Neut # (Auto) 2.9, Lymph # (Auto) 2.2, [place] # (Auto) 0.5, Eos # (Auto) 0.2, Baso # (Auto) 0.0, PT 9.9 L, INR 0.87 L, Sodium 131 L, Potassium 4.1, Chloride 101, Carbon Dioxide 22, Anion Gap 12.1, BUN 11, Creatinine 0.60, Estimated Creat Clear 125, Estimated GFR 115, Est GFR ( Amer) 139, Glucose 298 H, Hemoglobin A1c 11.2 H, Calcium 9.4, Total Bilirubin 0.9, AST 36, ALT 33, Alkaline Phosphatase 99, C- Reactive Protein 7.7 H, Total Protein 7.4, Albumin 4.4, Globulin 3.0, Albumin/Globulin Ratio 1.5, Lipase 77, Serum HCG, Qual Negative, HCV Ab [place] w/Rflx PCR Qn Negative, HIV Ag/Ab Combo Qual Negative 10/19/24 16:20 10/19/24 16:20 Orders (Tests/Meds): ED MEDICATIONS Discontinued Medications Generic Name Dose Route Start Last Admin Trade Name Freq PRN Reason Stop Dose Admin Amoxicillin/Clavulanate Potassium 1 each 10/19/24 18:29 10/19/24 18:32 Amoxicillin/Clavulanate Potassium 875/125mg Tablet PO 10/19/24 18:30 1 each ONCE ONE Administration Morphine Sulfate 4 mg 10/19/24 16:23 10/19/24 16:31 Morphine 4mg/Ml Syringe IV 10/19/24 16:24 4 mg ONCE ONE Administration Ondansetron HCl 4 mg 10/19/24 16:23 10/19/24 16:31 Ondansetron 4mg/2ml Vial IV 10/19/24 16:24 4 mg ONCE ONE Administration ORDERS Category Date Time Status C-Reactive Protein Stat Lab 10/19/24 16:20 Completed Complete Blood Count Auto Diff Stat Lab 10/19/24 16:20 Completed Comprehensive Metabolic Panel Stat Lab 10/19/24 16:20 Completed HCG Qualitative, Serum Stat Lab 10/19/24 16:20 Completed HIV Combo Stat Lab 10/19/24 16:20 Completed Hemoglobin A1C Stat Lab 10/19/24 16:20 Completed Hepatitis C Ab Qual. W/ RFX Stat Lab 10/19/24 16:20 Completed Lactic Acid Stat Lab 10/19/24 16:14 Ordered Lipase Stat Lab 10/19/24 16:20 Completed Prothrombin Time INR Stat Lab 10/19/24 16:20 Completed UA [Urinalysis and Microscopic] Stat Lab 10/19/24 16:00 Completed Urinalysis and Microscopic Stat Lab 10/19/24 16:22 Ordered Medical Decision Narrative: In summary, patient is a 33-year-old female presenting with low back pain. Differential diagnosis includes but is not limited to, pyelonephritis, diverticulitis, spinal trauma including fracture, malalignment, cauda equina, psoas muscle abscess. Given the patient has not had dysuria, fever, trauma to the back, most of these differentials are less likely. Patient has had diverticulitis in the past that has been conservatively managed with antibiotics only. Given the patient's current presentation, without fever, will evaluate with labs and urinalysis with medical treatment. Plan to withhold CT scan at this time due to radiation in a relatively young patient with likely uncomplicated infection. Lab evaluation will consist of CBC with differential, CMP, lipase, lactate, PT/INR, beta-hCG, urinalysis. Patient pain controlled with morphine and potential nausea with Zofran. On review of patient's labs, patient has no leukocytosis, anemia, thrombocytopenia. PT/INR unremarkable. Patient has mild hyponatremia at 131, significant blood glucose at 298. CRP elevated at 7.7. Urinalysis significant for glucose and no evidence of acute cystitis. Due to the patient's glucose level and glucosuria, an A1c was added to her evaluation and resulted as 11.2. Patient was given the findings of her lab evaluation as well as medical management with Augmentin and a few pills of oxycodone for severe pain. 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 Patient agreement with plan. Patient discharged in stable condition. Tatyana Juarez MD PGY-3, Emergency Medicine Critical Care Critical Care Time Critical Care Time: No
[2024-10-19 16:26] LABS: Basophils % 0.7 % (0.1-2.0); Eosinophils # 0.2 K/mm3 (0.0-0.4); Lymphocytes # 2.2 K/mm3 (0.7-4.5); Mean Corpuscular Volume 86.3 fl (81-99); Monocytes # 0.5 K/mm3 (0.1-1.0); Red Cell Distribution Width 11.9 % (11.5-17.5); White Blood Count 5.9 K/mm3 (4.8-10.8)
[2024-10-19 16:28] LABS: Bacteria,Urine Trace /lpf; RBC,Urine Occasional #/hpf (0-3); Squamous Epithelial Cell,Urine Occasional #/hpf (0-5)
[2024-10-19] MEDS: MORPHINE 4MG/ML SYRINGE 4 MG IV (16:31)
[2024-10-19] MEDS: ONDANSETRON 4MG/2ML VIAL 4 MG IV (16:31)
[2024-10-19 16:34] LABS: Albumin Level 4.4 g/dl (3.5-5.0); Chloride 101 mmol/L (98-107); Potassium 4.1 mmoL/L (3.5-5.1); Sodium 131 mmol/L (136-145)
[2024-10-19 16:36] LABS: Lipase 77 U/L (23-300)
[2024-10-19 16:37] LABS: Alanine Aminotransferase 33 U/L (12-78); Albumin/Globulin Ratio 1.5 (1.1-1.8); Alkaline Phosphatase 99 U/L (38-126); Anion Gap 12.1 mEq/L (5-15); Aspartate Amino Transferase 36 U/L (14-36); Bilirubin,Total 0.9 mg/dl (0.2-1.3); Blood Urea Nitrogen 11 mg/dl (7-17); Carbon Dioxide 22 mmol/L (22.0-30.0); Creatinine Clearance Estimated 125 mL/min (50-200); Estimated Glomerular Filt Rate 115 ml/min (>60); GFR (African American) 139 ML/MIN (>60); INR 0.87 (0.9-1.1); Prothrombin Time 9.9 seconds (10.1-12.5); Total Protein,Serum 7.4 g/dl (6.3-8.2)
[2024-10-19 16:38] LABS: Calcium 9.4 mg/dl (8.4-10.2); Glucose 298 mg/dl (74-100)
[2024-10-19 16:40] LABS: HCG Qualitative, Serum Negative (Negative)
[2024-10-19 16:43] LABS: C-Reactive Protein 7.7 mg/L (0-4)
[2024-10-19 16:51] LABS: Eosinophils % 3.7 % (0.1-12.0); Hematocrit 41.7 % (37.0-47.0); Hemoglobin 14.4 g/dL (12.2-16.2); Lymphocytes % 37.2 % (10-50); Mean Corpuscular HGB Conc 34.5 g/dL (31.8-35.4); Mean Corpuscular Hemoglobin 29.8 pg (27.0-31.2); Mean Platelet Volume 10.4 fl (7.4-10.4); Monocytes % 8.5 % (1.7-9.3); Neutrophils # 2.9 K/mm3 (1.8-7.8); Neutrophils % 49.6 % (37.0-80.0); Platelet Count 274 K/mm3 (142-424); Red Blood Count 4.83 M/mm3 (4.20-5.40)
--- NOTE | 2024-10-19 17:05 | PC.NURSE ---
GLUCOSE [id number]
[2024-10-19 17:23] LABS: HIV Combo NEGATIVE (Negative)
[2024-10-19 17:40] LABS: Hepatitis C Ab Qual. W/ RFX NEGATIVE (Negative)
--- NOTE | 2024-10-19 18:02 | PC.NURSE ---
CALLED LAB TO CHECK ON A1C RESULTS. LAB STATED IT WOULD TAKE 2 MORE MINUTES
[2024-10-19 18:05] LABS: Hemoglobin A1C 11.2 % (4.0-6.0)
[2024-10-19] MEDS: AMOXICILLIN/CLAVULANATE POTASSIUM 875/125MG TABLET 1 EACH PO (18:32)
== END 2024-10-19 18:40 | disposition home or self-care (01) ==
PROVIDERS: Emergency Provider Student in an Organized Health Care Education/Training Program; PCP Family Medicine
DX: K57.92 Diverticulitis of intestine, part unspecified, without perforation or abscess without bleeding (principal); E11.9 Type 2 diabetes mellitus without complications; M54.50 Low back pain, unspecified; Z72.0 Tobacco use
CPT/HCPCS: 80053; 81001; 83036; 83690; 84703; 85025; 85610; 86140; 86803; 87389; 96374; 96375; 99283; J2270; J2405

== ENCOUNTER 2024-10-24 14:26 | Emergency (ER) | payer MEDICAID, SELFPAY ==
[2024-10-24 14:27] VITALS: BP 143/89; PULSE 69; RESP 20; TEMP 36.8; O2SAT 100; BMI 43.4
--- NOTE | 2024-10-24 16:32 | CT_ITS ---
PROCEDURE INFORMATION: Exam: CT Abdomen And Pelvis With Contrast Exam date and time: 10/24/2024 6:14 PM Age: 33 years old Clinical indication: Abdominal pain; Acute; Additional info: L stone vs diverticulitis TECHNIQUE: Imaging protocol: Computed tomography of the abdomen and pelvis with contrast. Radiation optimization: All CT scans at this facility use at least one of these dose optimization techniques: automated exposure control; mA and/or kV adjustment per patient size (includes targeted exams where dose is matched to clinical indication); or iterative reconstruction. Contrast material: ISOVUE; Contrast volume: 75 ml; Contrast route: IV; COMPARISON: No relevant prior studies available. FINDINGS: Lungs: Mild bibasilar atelectasis. Liver: Hepatic steatosis with hepatomegaly. No liver lesions. Gallbladder and biliary ducts: Status post cholecystectomy. No significant biliary ductal dilitation. Pancreas: Normal. No ductal dilation. Spleen: Normal. No splenomegaly. Adrenal glands: Normal. No mass. Kidneys and ureters: Normal. No hydronephrosis. Stomach and bowel: Moderate fecal material in the colon. No dilated or thickened bowel loops. Appendix: No evidence of appendicitis. Intraperitoneal space: Unremarkable. No free air. No significant fluid collection. Vasculature: Unremarkable. No abdominal aortic aneurysm. Lymph nodes: Unremarkable. No enlarged lymph nodes. Urinary bladder: Unremarkable as visualized. Reproductive: Unremarkable as visualized. Bones/joints: Moderate L5-S1 facet arthropathy. Aito-[id number] degenerative change of the bilateral sacroiliac joints. No fractures or focal bone lesions. Soft tissues: Tiny fat containing umbilical hernia. Small fat containing supraumbilical hernia. IMPRESSION: 1. No acute findings. 2. Hepatic steatosis with hepatomegaly. 3. No urinary tract calculi. 4. No colonic diverticular disease.
[2024-10-24 16:45] LABS: Microscopic, Urine URINE MICROSCOPIC (MICROSCOPIC)
[2024-10-24 16:48] LABS: Appearance,Urine CLEAR (Clear); Bilirubin,Urine Negative (Negative); Blood, Urine 1+ (Negative); Color,Urine YELLOW (Yellow); Glucose,Urine (UA) TRACE (Negative); Ketones,Urine Negative (Negative); Leukocyte Esterase,Urine Negative (Negative); Nitrate,Urine Negative (Negative); PH,Urine 6.5 (5.0-8.5); Protein,Urine Negative (Negative); Urobilinogen,Urine 0.2 EU/dl (0.2)
[2024-10-24] MEDS: HYDROMORPHONE 2MG/ML SYRINGE 0.5 MG IV (16:49)
[2024-10-24] MEDS: KETOROLAC 30MG/ML VIAL 15 MG IV (16:49)
[2024-10-24] MEDS: ONDANSETRON 4MG/2ML VIAL 4 MG IV (16:49)
[2024-10-24 16:52] LABS: Basophils % 0.6 % (0.1-2.0); Eosinophils # 0.3 K/mm3 (0.0-0.4); Eosinophils % 3.6 % (0.1-12.0); Hematocrit 43.2 % (37.0-47.0); Lymphocytes # 2.5 K/mm3 (0.7-4.5); Lymphocytes % 36.5 % (10-50); Mean Corpuscular HGB Conc 34.7 g/dL (31.8-35.4); Mean Corpuscular Hemoglobin 29.9 pg (27.0-31.2); Mean Corpuscular Volume 86.1 fl (81-99); Mean Platelet Volume 9.9 fl (7.4-10.4); Monocytes # 0.5 K/mm3 (0.1-1.0); Monocytes % 7.4 % (1.7-9.3); Neutrophils # 3.6 K/mm3 (1.8-7.8); Neutrophils % 51.8 % (37.0-80.0); Platelet Count 296 K/mm3 (142-424); Red Blood Count 5.02 M/mm3 (4.20-5.40); Red Cell Distribution Width 11.8 % (11.5-17.5); White Blood Count 6.9 K/mm3 (4.8-10.8)
--- NOTE | 2024-10-24 16:58 | ED_ITS ---
Discharge Plan Disposition Patient Disposition: Home, Self-Care Prescriptions Prescriptions: New dexamethasone 6 mg tablet 6 mg PO DAILY Qty: 5 0RF No Action fluticasone propionate [Flonase Allergy Relief] 50 mcg/actuation spray,suspension 1 spray intranasal DAILY Qty: 16 2RF Rx Instructions: administer into each nostril cetirizine [All Day Allergy (cetirizine)] 10 mg tablet 10 mg PO DAILY PRN (Reason: allergic symptoms) Qty: 90 2RF Ozempic 0.25 mg or 0.5 mg (2 mg/3 mL) pen injector 0.25 mg SQ WEEKLY Qty: 3 2RF Rx Instructions: for 4 weeks amoxicillin-pot clavulanate 875-125 mg tablet 1 tab PO Q8H 5 Days Qty: 15 0RF oxycodone 5 mg tablet 5 mg PO DAILY PRN (Reason: pain) Qty: 3 0RF Referrals Follow up/Referrals: Marshall Mendoza MD [Primary Care Provider] - See instructions Activity Restrictions/Add. Instructions Additional Instructions/Restrictions: Call your family doctor to establish care for this visit to the emergency department and schedule follow-up within 48 hours to ensure improvement. If you have any worsening of your condition or any other concerning signs or symptoms, return to the emergency department or your primary care doctor for further evaluation. Steroid each morning for the next 5 days. Check sugars carefully and make sure they are not rising significantly while on the steroid. Clinical Impressions Clinical Impression: Acute left lumbar radiculopathy Instructions Patient Instructions: DI for Low Back Pain Print Language Print Language: Micronesian Discharge ED Provider: Holden Kaplan General Adult HPI General Chief complaint: Back Pain/Injury Stated complaint: severe back pain Time Seen by Provider: 10/24/24 16:22 Mode of Arrival: Wheelchair Source of Information: Patient Limitations: No Limitations Description of Symptoms (Recalled from ER Triage Doc. by RN): severe back pain. finished antibiotics today. started ozempic History of Present Illness HPI narrative: Please note that above description of symptoms, in this electronic medical record under categorization of recalled from ER triage doctor by RN are reflective of an initial nursing assessment, however, is not reflective of my full history and physical exam that was personally taken and clarified. Consequentially, this preceding description of symptoms, which may include the patient's categorized chief complaint in the EMR, do not reflect my personal clinical impression, and the ultimate description of history of present illness and patient stated complaints should be deferred to this section of the note. Unless stated otherwise or congruent with this section of the note, additional signs, symptoms, or incongruence should be interpreted as inaccurate with my clinical impression. Related Data Previous Rx's ?Medication ?Instructions ?Recorded cetirizine 10 mg tablet (All Day 10 mg PO DAILY PRN allergic 02/01/23 Allergy (cetirizine)) symptoms #90 tabs fluticasone propionate 50 1 spray intranasal DAILY #16 grams 02/01/23 mcg/actuation nasal spray,suspension (Flonase Allergy Relief) amoxicillin 875 mg-potassium 1 tab PO Q8H 5 days #15 tabs 10/19/24 clavulanate 125 mg tablet oxycodone 5 mg tablet 5 mg PO DAILY PRN pain #3 tabs 10/19/24 semaglutide 0.25 mg or 0.5 mg (2 0.25 mg (0.368 mL) SQ WEEKLY #3 mL 10/21/24 mg/3 mL) subcutaneous pen injector ([employer]) dexamethasone 6 mg tablet 6 mg PO DAILY #5 tabs 10/24/24 Allergies Allergy/AdvReac Type Severity Reaction Status Date / Time sulfamethoxazole (From Allergy Hives Verified 10/21/24 08:44 Bactrim) topiramate (From Topamax) Allergy Verified 10/21/24 08:44 trimethoprim (From Bactrim) Allergy Hives Verified 10/21/24 08:44 PFS PFS Disclaimer: The information contained in this section may have been updated after the patient was seen, as this information can be updated by other users. Medical History Colitis Hypertension Surgical History H/O adenoidectomy History of tonsillectomy History of cholecystectomy Family History Grandmother Cancer Grandfather Cancer Mother Cancer Hypertension Heart attack Father Hypertension Social History Smoking Status: Current every day smoker how long ago did patient quit smoking: < 1 year alcohol intake: never substance use type: denies use current occupational status: unemployed Travel in the last 8 weeks: None household members: spouse, family and children housing: house marital status: Have you lived/traveled outside [place] in past 30 days?: No Contact w/someone who lives/traveled outside US past 30 days?: No Exposure to someone with infectious disease in past 14 days?: No Do you have a fever (greater than 100.4 F or 38 C)?: No Have you tested positive for COVID-19: No Exposed to someone with COVID-19 in past 14 days?: No Do you have a sore throat?: No Do you have a cough?: No Do you have any weakness?: No Do you have any diarrhea?: No Are you experiencing any unusual bleeding?: No Do you have any muscle aches/pain?: No Do you have any abdominal pain?: No Are you experiencing loss of taste or smell?: No Other Medical History Have you received the Pneumonia Vaccine: No ROS Obtained: Yes All systems reviewed & no additional complaints except as documented Physical Exam General General appearance: alert, in distress (Secondary to pain) and obese Head Head exam: atraumatic and normocephalic Eye Eye exam: Present normal appearance, PERRL and EOMI Neck Neck exam: Present normal inspection, full ROM and trachea midline Respiratory Respiratory exam: Absent respiratory distress, wheezes, stridor, accessory muscle use or prolonged expiratory phase Cardiovascular Cardiovascular exam: Present normal rhythm, tachycardia and other (Pulses equal symmetric in upper and lower extremities) Abdominal Exam Abdominal exam: Present soft; Absent distention, tenderness, guarding, rebound or pulsatile mass Extremities Exam Extremities exam: Absent edema Neurological Exam Neurological exam: Present alert, oriented X3, CN II-XII intact and normal gait; Absent motor sensory deficit Skin Skin exam: Present warm and dry; Absent diaphoresis or erythema Medical Decision Making Medical Records Medical records reviewed: Yes I reviewed the patient's medical records. Screening: Per USPSTF and CDC recommendations, given the prevalence of disease in our region, it is our hospital?s policy to screen for HIV and viral Hepatitis for all patients aged 18 and over and those with ongoing risk factors. Abhijit Inquiry Pt receiving controlled substance: No Abhijit was queried for this patient: No Vital Signs: 10/24/24 14:27 10/24/24 17:00 10/24/24 17:30 Temperature 98.2 F Temperature Source Oral Pulse Rate 70 63 Pulse Rate [Right] 69 Respiratory Rate 20 Blood Pressure 154/104 H 142/84 H Blood Pressure [Right Arm] 143/89 H Blood Pressure Mean [Right Arm] 107 02 Sat by Pulse Oximetry 100 95 96 Oxygen Delivery Method Room Air Room Air 10/24/24 18:00 10/24/24 18:30 Temperature Temperature Source Pulse Rate 61 64 Pulse Rate [Right] Respiratory Rate Blood Pressure 130/82 144/99 H Blood Pressure [Right Arm] Blood Pressure Mean [Right Arm] 02 Sat by Pulse Oximetry 96 99 Oxygen Delivery Method Room Air Room Air Lab Data Lab Results 10/24/24 16:20: WBC 6.9, RBC 5.02, Hgb 15.0, Hct 43.2, MCV 86.1, MCH 29.9, MCHC 34.7, RDW 11.8, Plt Count 296, MPV 9.9, Neut % (Auto) 51.8, Lymph % (Auto) 36.5, [place] % (Auto) 7.4, Eos % (Auto) 3.6, Baso % (Auto) 0.6, Neut # (Auto) 3.6, Lymph # (Auto) 2.5, [place] # (Auto) 0.5, Eos # (Auto) 0.3, Baso # (Auto) 0.0, PT 9.3, I NR 0.83 L, APTT 22.6, Sodium 137, Potassium 4.1, Chloride 100, Carbon Dioxide 26, Anion Gap 15.1 H, BUN 9, Creatinine 0.50 L, Estimated Creat Clear 132, Estimated GFR 142, Est GFR ( Amer) 172, Glucose 202 H, Calcium 9.6, Total Bilirubin 0.9, AST 48 H, ALT 41, Alkaline Phosphatase 81, Total Protein 7.9, Albumin 4.6, Globulin 3.3 H, Albumin/Globulin Ratio 1.4, Lipase 61, Serum HCG, Qual Negative, Urine Color Yellow, Urine Appearance Clear, Urine pH 6.5, Ur Specific [place] 1.010, Urine Protein Negative, Urine Glucose (UA) Trace, Urine Ketones Negative, Urine Blood 1+ A, Urine Nitrate Negative, Urine Bilirubin Negative, Urine Urobilinogen 0.2, Ur Leukocyte Esterase Negative, Urine RBC 3-5, Urine WBC Occasional, Ur Squamous Epith Cells 3-5, Urine Bacteria Trace 10/24/24 16:20 10/24/24 16:20 Orders (Tests/Meds): ED MEDICATIONS Generic Name Dose Route Start Last Admin Trade Name Cathy PRN Reason Stop Dose Admin Sodium Chloride 10 ml 10/24/24 18:14 10/24/24 18:15 Sodium Chloride 0.9% 10ml Syr (Rad Only) IV 11/23/24 18:13 10 ml NEEDED PRN Administration Maintain IV Site Discontinued Medications Generic Name Dose Route Start Last Admin Trade Name Cathy PRN Reason Stop Dose Admin Dexamethasone Sodium Phosphate 10 mg 10/24/24 18:22 10/24/24 18:27 Dexamethasone 4mg/Ml 1ml Vial IV 10/24/24 18:23 10 mg ONCE ONE Administration Hydromorphone HCl 0.5 mg 10/24/24 16:32 10/24/24 16:49 Hydromorphone 2mg/Ml Syringe IV 10/24/24 16:33 0.5 mg ONCE ONE Administration Iopamidol 75 ml 10/24/24 18:14 10/24/24 18:15 Iopamidol-370 (76%);100ml Bottle IV 10/24/24 18:15 75 ml ONCE ONE Administration Ketorolac Tromethamine 15 mg 10/24/24 16:32 10/24/24 16:49 Ketorolac 30mg/Ml Vial IV 10/24/24 16:33 15 mg ONCE ONE Administration Ondansetron HCl 4 mg 10/24/24 16:32 10/24/24 16:49 Ondansetron 4mg/2ml Vial IV 10/24/24 16:33 4 mg ONCE ONE Administration ORDERS Category Date Time Status CT abdomen pelvis w con Stat Cat Scan 10/24/24 16:32 Completed Beta HCG, Qual [HCG Qualitative, Serum] Stat Lab 10/24/24 16:20 Completed Complete Blood Count Auto Diff Stat Lab 10/24/24 16:20 Completed Comprehensive Metabolic Panel Stat Lab 10/24/24 16:20 Completed Lactic Acid Stat Lab 10/24/24 16:33 Ordered Lipase Stat Lab 10/24/24 16:20 Completed PT INR [Prothrombin Time INR] Stat Lab 10/24/24 16:20 Completed PTT [Activated Partial Thrombo Time] Stat Lab 10/24/24 16:20 Completed Urinalysis and Microscopic Stat Lab 10/24/24 16:20 Completed Medical Decision Narrative: 33-year-old female history of diverticulitis and diabetes presenting with abdominal/flank pain. Patient states that she has deep abdominal pain versus left lower back pain. Does not radiate. Severe in intensity and made worse with changes in positioning and twisting. No urinary symptoms, bowel symptoms. States that she just finished Augmentin for diverticulitis and has since started feeling worse. Was recently also diagnosed with diabetes started on GLP-1 agonist injection and first injection was yesterday, 10/23. States that the pain was already flaring up prior to that and it does not seem like its gotten much worse since that time. No vomiting, fevers, or any other symptoms. States that it feels just like her diverticulitis she had in the past, but this is just worse. History was obtained via conversation with patient. On arrival, patient hemodynamically stable, alert, oriented x4, appropriate, GCS 15, moving all extremities spontaneously, pupils equal and reactive to light. Full physical exam performed and significant for moderate distress secondary to pain tearful. Abdomen soft, nontender, nondistended. No flank tenderness on my exam. No midline spinal tenderness. No ability for me to exaggerate pain on physical exam. Differential includes radiculopathy, PUD, gastritis, enteritis, gastroenteritis, pancreatitis, SBO, colitis, diverticulitis, nephrolithiasis, UTI, , cholecystitis, choledocholithiasis, appendicitis, hepatitis, torsion, aortic pathology, mesenteric ischemia among others. Patient placed on continuous cardiac monitoring and continuous pulse ox with initial blood pressure 143/89, heart rate 69, saturation 100% on room air. Patient was given Toradol, Zofran, Dilaudid for symptomatic management and correction of underlying abnormalities. Workup independently interpreted and significant for nonactionable CBC or chemistry. hCG and lipase negative. Urinalysis with some blood, otherwise normal. On repeat evaluation, patient states that she still in pain, worse with twisting motions, but mild to moderately improved. 10 mg Decadron were administered on concern for this being neuropathic. On independent interpretation of imaging, patient has no acute intra-abdominal abnormalities. No obvious evidence of nephrolithiasis. See radiology read for full review of final results. On reevaluation, patient resting comfortably states she feels better. Given patient presentation, workup, history, this most likely represents lumbar radiculopathy. Because patient at baseline without signs or symptoms of clinical decompensation, deemed appropriate for discharge. Results were relayed to patient who voiced understanding and were agreeable to outpatient management and follow up. I discussed my clinical impression with patient and answered all questions. At this time, the evidence for any other entities in the differential is insufficient to warrant any further testing or ED observation. This was explained as well. Advisory was given that persistent or worsening symptoms require further evaluation. I confirmed the understanding of this discussion. Saute Chef disclaimer Much of this encounter note is an electronic php lamp developer spoken language to printed text. Electronic php lamp developer of the spoken language may permit errors. Although I have reviewed the note, some errors may still exist. Critical Care Critical Care Time Critical Care Time: No
[2024-10-24 17:00] VITALS: BP 154/104; PULSE 70; O2SAT 95
[2024-10-24 17:00] LABS: Activated Partial Thrombo Time 22.6 seconds (22.5-28.5); Albumin Level 4.6 g/dl (3.5-5.0); Chloride 100 mmol/L (98-107); Potassium 4.1 mmoL/L (3.5-5.1); Sodium 137 mmol/L (136-145)
--- NOTE | 2024-10-24 17:00 | PC.NURSE ---
I notified lab that a serum preg was added on.
[2024-10-24 17:02] LABS: Lipase 61 U/L (23-300)
[2024-10-24 17:03] LABS: Alanine Aminotransferase 41 U/L (12-78); Albumin/Globulin Ratio 1.4 (1.1-1.8); Alkaline Phosphatase 81 U/L (38-126); Anion Gap 15.1 mEq/L (5-15); Aspartate Amino Transferase 48 U/L (14-36); Bilirubin,Total 0.9 mg/dl (0.2-1.3); Blood Urea Nitrogen 9 mg/dl (7-17); Carbon Dioxide 26 mmol/L (22.0-30.0); Creatinine Clearance Estimated 132 mL/min (50-200); Estimated Glomerular Filt Rate 142 ml/min (>60); GFR (African American) 172 ML/MIN (>60); Globulin 3.3 g/dL (1.3-3.2); Total Protein,Serum 7.9 g/dl (6.3-8.2)
[2024-10-24 17:04] LABS: Calcium 9.6 mg/dl (8.4-10.2); Glucose 202 mg/dl (74-100)
[2024-10-24 17:14] LABS: INR 0.83 (0.9-1.1); Prothrombin Time 9.3 seconds (9.2-12.1)
[2024-10-24 17:30] VITALS: BP 142/84; PULSE 63; O2SAT 96
[2024-10-24 18:00] VITALS: BP 130/82; PULSE 61; O2SAT 96
[2024-10-24 18:04] LABS: HCG Qualitative, Serum Negative (Negative)
[2024-10-24] MEDS: IOPAMIDOL-370 (76%);100ML BOTTLE 75 ML IV (18:15)
[2024-10-24] MEDS: SODIUM CHLORIDE 0.9% 10ML SYR (RAD ONLY) 10 ML IV (18:15)
[2024-10-24 18:26] LABS: Bacteria,Urine Trace /lpf; WBC,Urine Occasional #/hpf (0-3)
[2024-10-24] MEDS: DEXAMETHASONE 4MG/ML 1ML VIAL 10 MG IV (18:27)
[2024-10-24 18:30] VITALS: BP 144/99; PULSE 64; O2SAT 99
[2024-10-24 19:16] VITALS: BP 143/88; PULSE 65; RESP 16; TEMP 36.7; O2SAT 100
== END 2024-10-24 19:22 | disposition home or self-care (01) ==
PROVIDERS: Emergency Provider Emergency Medicine; PCP Family Medicine
DX: M54.16 Radiculopathy, lumbar region (principal); M54.9 Dorsalgia, unspecified; R10.9 Unspecified abdominal pain; E11.9 Type 2 diabetes mellitus without complications
CPT/HCPCS: 74177; 80053; 81001; 83690; 84703; 85025; 85610; 85730; 96374; 96375; 99285; J1100; J1171; J1885; J2405; Q9967

== ENCOUNTER 2024-10-30 16:14 | Outpatient (CLI) | payer MEDICAID, SELFPAY ==
--- NOTE | 2024-10-30 16:22 | XR_ITS ---
PROCEDURE INFORMATION: Exam: XR Lumbosacral Spine Exam date and time: 10/30/2024 4:30 PM Age: 33 years old Clinical indication: Low back pain TECHNIQUE: Imaging protocol: Radiologic exam of the lumbosacral spine. Views: 2 or 3 views. COMPARISON: CT ABDOMEN PELVIS W CON 10/24/2024 6:14 PM FINDINGS: Bones/joints: Mild levoscoliosis lumbar spine measuring 12 degrees with the apex of curvature at L4. Moderate bilateral facet arthropathy at L5-S1. Worse on the left side. Soft tissues: Unremarkable. IMPRESSION: 1. Mild levoscoliosis lumbar spine measuring 12 degrees with the apex of curvature at L4. 2. Moderate bilateral facet arthropathy at L5-S1. Worse on the left side.
== END 2024-10-30 23:59 | disposition home or self-care (01) ==
LOC: RAD 16:15
PROVIDERS: PCP Family Medicine; Visit Provider Family Medicine
DX: M54.50 Low back pain, unspecified (principal)
CPT/HCPCS: 72100

== ENCOUNTER 2024-11-28 08:00 | Outpatient (RCR) | payer MEDICAID, SELFPAY ==
--- NOTE | 2024-11-12 16:50 | HMH.PTOPEV ---
PT Outpatient Evaluation Rehab PT Outpatient Evaluation Start: 11/12/24 15:56 Freq: Status: Active Protocol: Document 11/12/24 15:56 PDESEROUX (Rec: 11/12/24 16:49 [email or web address] [id number]) E-signed By Damien Farrell, PT Outpatient Therapy Subjective History Subjective History Pt. is a 33 year old female who presents to [facility] Out[facility] Services in [place] for the outpatient initial evaluation this date( 11/12/24) w/ c/o acute and constant bilateral lumbar P! w / intermittent muscle spasms and catching of insidious onset on 10/20/24. Pt. reports going to the emergency room on 10/22/24 secondary to the P !. Pt. was treated from diverticulitis w/ prescribed medication where she had no symptom relief secondary to past medical history of LBP! secondary to diverticulitis. Pt. vocalizes having some symptom relief w/ prescribed muscle relaxer and pain medicine prescribed per family Doctor. Pt. does not have a return date to family Doctor at this time. Recent diagnostic imaging indicates scoliosis per pt. report. Pt. reports having no symptom relief w/ steroid injection she got when she went to the emergency room. Pt. denies bowel/bladder dysfunction, denies saddle paresthesia. Pt. denies having numbness not tingling into neither BLEs. Pt . reports having difficulty w/ prolonged standing and sitting for 20 minutes, states , I have to keep moving. Pt. also c/o increasing P! w/ turning over in her bed at night. Pt. 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 provocation. Current medications include pain medicine, muscle relaxer, Ozempic. PMH includes DM-II, Hypertension, and Diverticulitis. New diagnosis of cancer in past 12 No months? Chief Complaint Pain,Spasms,Stiff,Catches/ Locks Symptom Type Ache,Throb,Sharp,Dull,Stabbing Symptoms Relieved By Rest/Positioning,Ice, Prescription Meds Symptoms Aggravated By Sitting,Standing,Bending/ Stooping,Twisting,Lifting Prior Functional Limitations None Current Functional Limitations Lifting,Housework,Sleeping, Standing,Sitting,Recreation Activity,Bending/Stooping Symptom Description Constant but Variable,Activity Dependent Level of pain today (0-10) 2 Pain scale - at its best (0-10) 1 Pain scale - at its worst (0-10) 10 Lumbopelvic Eval Posture Thoracic Spine Posture Standing Position Neutral Lumbar Spine Posture Standing Position Flexible Scoliosis on (L) Assistive device Assistive Devices None / NA Gait Observation General Gait Pattern Observation No Deviations/Normal Palapation tenderness bilateral lumbar spinal tenderness Yes: L2-S1 paraspinal tenderness No buttock tenderness No Lumbar/Sacral Palpation Findings Tenderness Lumbar/Sacral Palpation Overall Comment grade 4 +TTP Accessory Movement L-spine Vertebrae Accessory Movements Central P/A [place],Right P/A that Elicit Symptoms [place],Left P/A [place] L2 bilateral L3 bilateral L4 bilateral L5 bilateral S1 bilateral Range of Motion Lumbar Spine Active Flexion Range of 66 Motion (degrees) Lumbar Spine Active Extension Range of 18 Motion (degrees) Left Lumbar Spine Lateral Flexion Active 17 Range of Motion (degrees) Right Lumbar Spine Lateral Flexion 23 Active Range of Motion (degrees) Lumbar Spine ROM Limitations Soft Tissue Tightness,Muscle Weakness,Pain Manual Muscle Test Left Knee Extension Strength Grade 4 Good Knee Flexion Strength Grade 4 Good Hip Flexion Strength Grade 4 Good Hip Abduction Strength Grade 4 Good Hip Adduction Strength Grade 4 Good Hip External Rotation Strength Grade 4 Good Hip Internal Rotation Strength Grade 4 Good Hip Extension Strength Grade 5 Normal Gluteus [place] Strength Grade 5 Normal Extensor Hallucis Longus Strength Grade 5 Normal Ankle Dorsiflexion Strength Grade 5 Normal Gastronemius/Soleus Strength Grade 5 Normal Right Knee Extension Strength Grade 4- Good- Knee Flexion Strength Grade 4- Good- Hip Flexion Strength Grade 4- Good- Hip Abduction Strength Grade 4 Good Hip Adduction Strength Grade 4 Good Hip External Rotation Strength Grade 4- Good- Hip Internal Rotation Strength Grade 4- Good- Hip Extension Strength Grade 4- Good- Gluteus [place] Strength Grade 4- Good- Extensor Hallucis Longus Strength Grade 5 Normal Ankle Dorsiflexion Strength Grade 5 Normal Gastronemius/Soleus Strength Grade 5 Normal DTR Rt Patellar 2+ Lt Patellar 2+ Rt Gastroc/Soleus 0 Lt Gastroc/Soleus 2+ Altered Sensation Bilateral LE Dermatome Level L1,L2,L3,L4,L5 Comment pt. vocalized light touch sensation symmetrical in BLEs grossly in above patterns Special Tests Lumbar Spine Screen Positive Hip Piriformis Test Negative Left,Negative Right Sciatic Nerve Tension Test Positive Left,Positive Right Unilateral Straight Leg Raise (Lasegue) Positive Left,Positive Right Test Bilateral Straight Leg Raise Test Positive Crossed Straight Leg Raise Test Positive Left,Positive Right Lumbar Long [place] Distraction Test/Manual Positive Traction Outpatient Therapy Assessment Impairments Problems/Impairmments Palpation Tenderness,Impaired Range of Motion,Impaired Strength,Impaired Transfers, Impaired Standing,Impaired Sitting,Impaired Lifting, Impaired Shower/Bathing, Impaired Household Care, Impaired Bending,Impaired Recreational Activities, Impaired Work Activities, Subjective C/O Pain,Impaired Self Care/Self Management Prognosis Rehab Potential Good Comment w/ HEP compliancy Clinical Impression Consistent with Diagnosis Yes Consistent with mechanical low back pain Short Term Goals Number of Weeks 2 Decreased Palpation Tenderness Yes: grade 1-2 +TTP Decrease Subjective C/O Pain Yes: worse:02/08 Patient to be Ind w/ HEP Yes Half-Way Goals Number of Weeks 4-6 Decreased Palpation Tenderness Yes: grade 1 +TTP Increase Range of Motion Yes: lumbar spine AROM WFL grossly w/o difficulty Increase Strength Yes: 4+ to 5/5 BLE MMT scores grossly Improve Transfers Yes: Pt. will be able to transition in bed w/o difficulty Increase Ability to Stand Yes: >20' w/o difficulty Increase Ability to Sit Yes: >20' w/o difficulty Improve Ability to Dress Self Yes: Pt. 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 Improve Oswestry Score Yes Decrease Subjective C/O Pain Yes: worse:-11/11 Patient to be Ind w/ Advanced HEP Yes Outpatient Therapy Plan of Care Treatment Plan May Include Therapeutic Exercise Including Home Yes Exercise Program Manual Therapy Techniques Yes Neuromuscular Re-education Yes Therapeutic Activities to Return to Yes Previous Functional/Work Level ADL/Self Care Education Yes Mechanical Traction Yes Dry Needling Yes Thermal Modalities Yes Electrical Stimulation Yes Ultrasound/Phonophoresis Yes Iontophoresis Yes Vasopneumatic Compression Pump Yes Massage Yes Eval/Re-Eval Yes Frequency Times per week 2 Duration Number of Weeks 4-6 Addendums This patient is a candidate for social No or vocational rehab? Patient/Guardian verbally acknowledges Yes understanding of treatment program and consents to further treatment? Patient/Guardian verbally acknowledges Yes understanding of diagnosis, prognosis and goals for treatment? Eval Complexity PT Charges 41138 - Low Complexity Shoulder/Elbow Eval Shoulder Objective Measurements Elbow Objective Measurements PHYSICIAN CERTIFICATION: I certify the specified therapy services for Neyda Alarcon are required, authorized, and reviewed every 30 days.
== END 2024-11-28 23:59 | disposition home or self-care (01) ==
LOC: PT 08:00
PROVIDERS: Visit Provider Family Medicine
DX: M54.50 Low back pain, unspecified (principal)
CPT/HCPCS: 97014; 97110; 97140; 97163; G0283

== ENCOUNTER 2024-12-16 11:00 | Outpatient (RCR) | payer MEDICAID, SELFPAY | END 2024-12-16 23:59 | disposition home or self-care (01) | LOC: PT 11:00 | PROVIDERS: Visit Provider Family Medicine | DX: M54.50 Low back pain, unspecified (principal) | CPT/HCPCS: 97110; 97164 ==